=== PATIENT | female | born 1965 | race Caucasian/White ===

== ENCOUNTER → 2017-02-20 | Outpatient (CLI) | payer OTHER ==
--- NOTE | 2017-02-20 14:00 | Diagnostic Imaging Report ---
INDICATION: Postmenopausal bleeding. COMPARISON: None. DISCUSSION: Transabdominal and transvaginal sonographic evaluation of the pelvis was performed. The uterus is normal in echotexture and size measuring 9.3 x 3.8 x 5.7 cm. There is a small focus of heterogeneity within the anterior myometrium which could represent a small ill-defined fibroid measuring up to 1.5 cm. Normal endometrial thickness measuring 0.5 cm. The ovaries appear normal in echotexture and size bilaterally with normal color Doppler blood flow. The right ovary measures 2.3 x 1.5 x 2.9 cm. The left ovary measures 4 x 2.2 x 2.2 cm. No abnormal adnexal mass or fluid. IMPRESSION: 1. Suspect small ill-defined anterior uterine fibroid. No other acute abnormality identified. Dictated by: Dictated on workstation # [id number]
--- NOTE | 2017-02-21 08:43 | Diagnostic Imaging Report ---
INDICATION: Screening mammogram. COMPARISON: 12/29/2015. TECHNIQUE: Digital screening mammography was obtained with a Computer Aided Detection (CAD) system. FINDINGS: Scattered fibroglandular densities are present. There is no mass or suspicious calcification. IMPRESSION: Stable screening mammogram. No malignancy. ACR BI-RADS Category 1: Negative. Result letter will be mailed to the patient. Note: At least 10% of breast cancer is not imaged by mammography. Dictated by: Dictated on workstation # [id number]
== END ==
LOC: RAD 12:36
PROVIDERS: ATTEND Obstetrics & Gynecology
DX: Z12.31 Encounter for screening mammogram for malignant neoplasm of breast (principal); N95.0 Postmenopausal bleeding
CPT/HCPCS: 76830; 76856; G0202